=== PATIENT | male | born 1985 | race American Indian/Alaskan Native ===

== ENCOUNTER 2019-02-02 11:07 | Emergency (ER) | payer OTHER ==
[2019-02-02 11:41] VITALS: BP 138/91
--- NOTE | 2019-02-02 11:42 | Emergency Department Report ---
Blank Doc - Documentation Documentation: 33 y o male presents to Ed cc of right hand pain that began this morning, cipriano es injury, trauma fall Full ROM ACC evaluate
[2019-02-02] MEDS ORDERED: IBUPROFEN PO ONE (13:58)
--- NOTE | 2019-02-02 14:30 | Emergency Department Report ---
ED Extremity Problem HPI - General Chief complaint: Extremity Injury, Upper Stated complaint: (R) HAND SWOLLEN Time Seen by Provider: 02/02/19 11:39 Source: patient Mode of arrival: Ambulatory Limitations: No Limitations - History of Present Illness Initial comments: Patient is a 33-year-old [place] male who lives in [place] [employer]. Patient states that yesterday before leaving work he normally has insistent that this cyst was taken to long and he tried to load a machine onto a pallet watt by himself. Patient's noted that towards the evening was sick at home he started having some pain at the base of the right thumb. There is no deformity no direct trauma. Patient has pain only when he's tries to make a fist. Patient says the pain is a 6 out of 10 at worst. They can thumb pain is no radiation. Severity scale (0 -10): 7 - Related Data Previous Rx's Medication Instructions Recorded Last Taken Type Ibuprofen [Ibu] 800 mg PO Q8H PRN #20 tablet 02/02/19 Unknown Rx Allergies Allergy/AdvReac Type Severity Reaction Status Date / Time No Known Allergies Allergy Unverified 02/02/19 11:09 ED Review of Systems ROS: Stated complaint: (R) HAND SWOLLEN Other details as noted in HPI Comment: All other systems reviewed and negative ED Past Medical Hx - Past Medical History Hx Asthma: Yes - Surgical History Past Surgical History?: No - Social History Smoking Status: Current Every Day Smoker Substance Use Type: Alcohol - Medications Home Medications: Home Medications Medication Instructions Recorded Confirmed Last Taken Type Ibuprofen [Ibu] 800 mg PO Q8H PRN #20 tablet 02/02/19 Unknown Rx ED Physical Exam - General Limitations: No Limitations General appearance: alert, in no apparent distress - Head Head exam: Present: atraumatic, normocephalic - Eye Eye exam: Present: normal appearance - ENT ENT exam: Present: mucous membranes moist - Respiratory Respiratory exam: Absent: respiratory distress - Extremities Exam Extremities exam: Present: other (patient with some tenderness to the base of the left thumb. There is no swelling or erythema. There is some point tenderness in pain when he tries to make a fist.) ED Course Vital Signs 02/02/19 11:38 Temperature 98.1 F Pulse Rate 82 Respiratory 15 Rate Blood Pressure 138/91 O2 Sat by Pulse 100 Oximetry ED Medical Decision Making - Medical Decision Making Patient likely with a simple sprain to the left thumb from pulling motion to the digit at work. Patient placed in a thumb spica to immobilize his thumb and can use ice therapy. Patient discharged home with follow with orthopedics as needed. Critical care attestation.: If time is entered above; I have spent that time in minutes in the direct care of this critically ill patient, excluding procedure time. ED Disposition Clinical Impression: Strain of thumb Disposition: DC-01 TO HOME OR SELFCARE Is pt being admited?: No Does the pt Need Aspirin: No Condition: Stable Instructions: Muscle Strain (ED) Referrals: ARTI MCKINNEY MD [Staff Physician] - as needed Time of Disposition: 14:33
== END 2019-02-02 14:40 | disposition home or self-care (01) ==
LOC: ED 11:07
DX: S63.601A Unspecified sprain of right thumb, initial encounter (principal); J45.909 Unspecified asthma, uncomplicated; F17.200 Nicotine dependence, unspecified, uncomplicated; X58.XXXA Exposure to other specified factors, initial encounter; Y93.89 Activity, other specified; Y92.89 Other specified places as the place of occurrence of the external cause; Y99.8 Other external cause status